=== PATIENT | female | born 1960 | race Caucasian/White ===

== ENCOUNTER 2018-08-15 09:38 | Emergency (ER) | payer MEDICARE ==
--- NOTE | 2018-08-15 10:26 | UC ---
Back Pain HPI - HPI Summary HPI Summary: 58 yo female presents with low back pain. She tells me that 6 days ago she woke up with this pain and it has persisted since. She notes that it seems to improve after certain stretching exercises, but will return soon after. She has not taken anything OTC for this discomfort as she does not like taking medications. She denies numbness, tingling, radiation of pain, saddle anesthesia , loss of bowel/bladder control. - History of Current Complaint Chief Complaint: UCBackPain Stated Complaint: BACK PAIN Time Seen by Provider: 08/15/18 10:25 Hx Obtained From: Patient Onset/Duration: Sudden Onset Timing: Constant Severity Initially: Moderate Severity Currently: Moderate Pain Intensity: 7 Pain Scale Used: 0-10 Numeric - Allergies/Home Medications Allergies/Adverse Reactions: Allergies Allergy/AdvReac Type Severity Reaction Status Date / Time Sulfa (Sulfonamide Allergy Unknown Verified 08/15/18 10:24 Antibiotics) Reaction Details PMH/Surg Hx/FS Hx/Imm Hx - Additional Past Medical History Additional PMH: None - Surgical History Surgical History: None - Family History Known Family History: Positive: None - Social History Lives: With Family Alcohol Use: None Substance Use Type: None Smoking Status (MU): Never Smoked Tobacco Review of Systems Constitutional: Negative Skin: Negative Respiratory: Negative Cardiovascular: Negative Gastrointestinal: Negative Genitourinary: Negative Neurovascular: Negative Musculoskeletal: Other: - LBP Neurological: Negative Psychological: Negative All Other Systems Reviewed And Are Negative: Yes Physical Exam - Summary Physical Exam Summary: GENERAL: NAD. WDWN. No pain distress. SKIN: No rashes, sores, lesions, or open wounds. NECK: Supple. FROM. Nontender. No lymphadenopathy. CHEST: CTAB. No r/r/w. No accessory muscle use. Breathing comfortably and in no distress. CV: RRR. Without m/r/g. Pulses intact. Cap refill <2seconds MSK: TTP over lumbar paraspinal muscles. Pain with flexion of spine. Positive SLR b/l for low back pain without radiation. Strength 5/5 B/L LEs including dorsiflexion and plantar flexion, pain in lower back with dorsiflexion. FROM B/ L LEs. No edema. NEURO: Alert. CN II-XII grossly intact. Sensations intact B/L LEs L3-S1. PSYCH: Age appropriate behavior. Triage Information Reviewed: Yes Vital Signs: Initial Vital Signs Temp 97.6 F 08/15/18 10:17 Pulse 70 08/15/18 10:17 Resp 18 08/15/18 10:17 Pulse Ox 100 08/15/18 10:17 Vital Signs Reviewed: Yes Back Pain Course/Dx - Course Course Of Treatment: Pt refused BP. XR: IMPRESSION: #. Negative for fracture or malalignment. #. Degenerative spondylosis and facet joint osteoarthritis. Suspect muscle strain. Rx for lidocaine patch as she prefers not to take po medications. F/u with physical therapy for further treatment. - Differential Dx/Diagnosis Provider Diagnoses: Low back pain Discharge - Sign-Out/Discharge Documenting (check all that apply): Patient Departure All imaging exams completed and their final reports reviewed: Yes - Discharge Plan Condition: Stable Disposition: HOME Prescriptions: Lidocaine PATCH 5%* [Lidoderm 5% Patch*] 1 patch TRANSDERM DAILY PRN #1 box PRN Reason: Pain Patient Education Materials: Muscle Strain (ED) Referrals: No Primary Care Phys,NOPCP [Primary Care Provider] - Additional Instructions: If you develop a fever, shortness of breath, chest pain, new or worsening symptoms - please call your PCP or go to the ED. 1) Please follow up with Dr. Kan or Dr. Forman at the number below for a primary care doctor - Billing Disposition and Condition Condition: STABLE Disposition: Home - Attestation Statements Provider Attestation: Per institutional requirements, I have reviewed the chart, however, I was not consulted specifically or made aware of this patient by the midlevel provider. I did not personally evaluate, interact with , or disposition this patient.
--- NOTE | 2018-08-15 11:38 | RAD ---
Indication: Back pain with flexion following injury 6 days ago. Decreased range of motion. Comparison: No relevant prior exams available on the [facility] for comparison. Technique: AP, lateral, and oblique views lumbar sacral spine. Report: Partial lumbarization of the S1 vertebral body greater on the RIGHT. Exact vertebral counting requires imaging of the entire neural axis. Negative for fracture or spondylolysis at any level. Negative for spondylolisthesis. Multilevel mild vertebral endplate osteophytosis. Mild L5-S1 disc space narrowing. Multilevel mild to moderate facet joint osteoarthritis increasing in severity extending caudal. Unremarkable paraspinal soft tissue contours. IMPRESSION: #. Negative for fracture or malalignment. #. Degenerative spondylosis and facet joint osteoarthritis.
== END 2018-08-15 12:00 | disposition home or self-care (01) ==
LOC: UCEAST 09:38
DX: M54.5 Low back pain (principal); M47.817 Spondylosis without myelopathy or radiculopathy, lumbosacral region; Z88.2 Allergy status to sulfonamides
CPT/HCPCS: 72110; 99202; G0463

== ENCOUNTER 2019-05-20 18:37 | Emergency (ER) | payer MEDICARE, MEDICAID ==
--- NOTE | 2019-05-20 19:53 | ED ---
Skin Complaint - HPI Summary HPI Summary: This patient is a 59 year old female presenting to [facility] with a chief complaint of rash. The patient states she moved into a new apartment 5 days ago and states the floors in the kitchen and the bathroom felt like a mouse in a glue trap. From when she moved in she experienced rhinorrhea, swelling and pruritis behind the left ear. She complains of pruritic rash on her fingers, in her vaginal area, and her buttocks. She states it has gotten progressively worse since . She states it could be exposure to poison elsie or poison oak as she urinated outside on the grass last week. The patient has been using spray on lotions and showering on the applied areas. She states the affected areas become painful if she scratches them. The patient reports a sore throat that has resolved. She denies using any new soaps, laundry detergents, and foods. Denies fever, cough, sore throat, CP, SOB, N/V/D, abdominal pain, change in urine, change in BM. Medical history is none. Patient has not seen a primary care provider in years. - History of Current Complaint Chief Complaint: EDRashSkinAbscess Time Seen by Provider: 05/20/19 19:40 Stated Complaint: LT EAR SWOLLEN PER PT Hx Obtained From: Patient Onset/Duration: Started Days Ago, Atraumatic Timing: Constant Onset Severity: Moderate Current Severity: Moderate Pain Intensity: 5 Pain Scale Used: 0-10 Numeric Skin Location: Diffuse, Ear, Other: Aggravating Symptom(s): Nothing Alleviating Symptom(s): Nothing Associated Signs & Symptoms: Rash - Allergy/Home Medications Allergies/Adverse Reactions: Allergies Allergy/AdvReac Type Severity Reaction Status Date / Time Sulfa (Sulfonamide Allergy Unknown Verified 05/20/19 18:45 Antibiotics) Reaction Details Home Medications: Home Medications NK [No Home Medications Reported] 05/20/19 [History Confirmed 05/20/19] PMH/Surg Hx/FS Hx/Imm Hx Endocrine/Hematology History: Denies: Hx Anticoagulant Therapy Cardiovascular History: Denies: Hx Pacemaker/ICD History: Denies: Hx Dialysis Sensory History: Denies: Hx Eye Prosthesis Opthamlomology History: Denies: Hx Legally Blind EENT History: Denies: Hx Deafness Neurological History: Denies: Hx Developmental Delay Psychiatric History: Denies: Hx Autism Infectious Disease History: No Infectious Disease History: Denies: Traveled Outside the [place] in Last 30 Days - Family History Known Family History: Positive: None - Social History Alcohol Use: None Substance Use Type: Reports: None Smoking Status (MU): Never Smoked Tobacco Review of Systems Constitutional: Negative Eyes: Negative Positive: Ear Ache - Swelling, inflammation, discharge of left earlobe. No pain with palpation of either. Normal exam of ear canal and TM. Cardiovascular: Negative Respiratory: Negative Gastrointestinal: Negative Genitourinary: Negative Musculoskeletal: Negative Positive: Rash Neurological: Negative Psychological: Normal All Other Systems Reviewed And Are Negative: Yes Physical Exam - Summary Physical Exam Summary: Thickened erythemic rash in the vaginal area, bilateral medial thighs, and perianal area. Satellite lesion on the left buttock with some crusting and a swollen edemitis left ear lobe. Triage Information Reviewed: Yes Vital Signs On Initial Exam: Initial Vitals Temp Pulse Resp BP Pulse Ox 97.9 F 63 16 130/77 100 05/20/19 18:43 05/20/19 18:43 05/20/19 18:43 05/20/19 18:43 05/20/19 18:43 Vital Signs Reviewed: Yes Appearance: Positive: Well-Appearing, No Pain Distress Skin: Positive: Warm, Dry Head/Face: Positive: Normal Head/Face Inspection Eyes: Positive: Normal, EOMI, MAXIME ENT: Positive: Normal ENT inspection, Pharynx normal, TMs normal Neck: Positive: Supple, Nontender Respiratory/Lung Sounds: Positive: Clear to Auscultation, Breath Sounds Present Cardiovascular: Positive: Normal, RRR Abdomen Description: Positive: Nontender, Soft Bowel Sounds: Positive: Present Musculoskeletal: Positive: Normal, Strength/ROM Intact Neurological: Positive: Normal, Alert, Oriented to Person Place, Time Psychiatric: Positive: Affect/Mood Appropriate AVPU Assessment: Alert - [place] Coma Scale Best Eye Response: 4 - Spontaneous Best Motor Response: 6 - Obeys Commands Best Verbal Response: 5 - Oriented Coma Scale Total: 15 Diagnostics - Vital Signs Vital Signs Temp Pulse Resp BP Pulse Ox 05/20/19 18:43 97.9 F 63 16 130/77 100 - Laboratory Lab Statement: Any lab studies that have been ordered have been reviewed, and results considered in the medical decision making process. Course/Dx - Course Course Of Treatment: This patient is a 59 year old female presenting to [facility] with a chief complaint of rash. The patient states she moved into a new apartment 5 days ago and states the floors in the kitchen and the bathroom felt like a mouse in a glue trap. From when she moved in she experienced rhinorrhea, swelling and pruritis behind the left ear. She complains of pruritic rash on her fingers, in her vaginal area, and her buttocks. She states it has gotten progressively worse since . She states it could be exposure to poison elsie or poison oak as she urinated outside on the grass last week. The patient has been using spray on lotions and showering on the applied areas. She states the affected areas become painful if she scratches them. The patient reports a sore throat that has resolved. She denies using any new soaps, laundry detergents, and foods. Denies fever, cough, sore throat, CP, SOB, N/V/D, abdominal pain, change in urine, change in BM. Medical history is none. Patient has not seen a primary care provider in years. Physical exam:Thickened erythemic rash in the vaginal area, bilateral medial thighs, and perianal area. Satellite lesion on the left buttock with some crusting and a swollen edemitis left ear lobe. Vital signs within normal limits. Rx for nystatin cream 3 times a day 10 days. - Diagnoses Provider Diagnoses: Candidal dermatitis Discharge - Sign-Out/Discharge Documenting (check all that apply): Patient Departure Patient Received Moderate/Deep Sedation with Procedure: No - Discharge Plan Condition: Stable Disposition: HOME Patient Education Materials: Skin Yeast Infection (ED) Referrals: No Primary Care Phys,NOPCP [Primary Care Provider] - Care [facility] [Outside] Additional Instructions: Use cream on rash 3 times a day for 10 days. Do not use on left ear. Follow up with primary care. Return to the ED for any new or worsening symptoms. - Billing Disposition and Condition Condition: STABLE Disposition: Home - Attestation Statements Document Initiated by Scribe: Yes Documenting Scribe: Danny Mares Provider For Whom Julius is Documenting (Include Credential): GLENDY Rangel Scribe Attestation: Danny Escamilla, scribed for GLENDY Rangel on 05/21/19 at 2054. Scribe Documentation Reviewed: Yes Provider Attestation: The documentation as recorded by the scribe, Danny Mares accurately reflects the service I personally performed and the decisions made by me, GLENDY Rangel Status of Scribe Document: Viewed
[2019-05-20] MEDS ORDERED: Nystatin CREAM* 15 GM TUBE TOPICAL ONE (21:49)
[2019-05-20 22:28] VITALS: BP 0/0
== END 2019-05-20 22:26 | disposition home or self-care (01) ==
LOC: ED 18:37
DX: B37.2 Candidiasis of skin and nail (principal)
CPT/HCPCS: 99282; A9270-GY

== ENCOUNTER 2019-08-24 09:36 | Emergency (ER) | payer MEDICARE, MEDICAID ==
[2019-08-24 09:49] VITALS: BP 122/60
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
== END 2019-08-24 11:20 | disposition home or self-care (01) ==
LOC: UCEAST 09:36
DX: G89.29 Other chronic pain (principal); S39.012A Strain of muscle, fascia and tendon of lower back, initial encounter; V70.6XXA Passenger on bus injured in collision with pedestrian or animal in traffic accident, initial encounter; Y92.410 Unspecified street and highway as the place of occurrence of the external cause; F41.9 Anxiety disorder, unspecified; Z88.2 Allergy status to sulfonamides
CPT/HCPCS: 72050; 72070; 72110; 99212; G0463

== ENCOUNTER 2019-11-15 14:49 | Emergency (ER) | payer MEDICARE, MEDICAID ==
[2019-11-15 15:04] VITALS: BP 0/0
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
== END 2019-11-15 16:25 | disposition home or self-care (01) ==
LOC: UCEAST 14:49
DX: S16.1XXA Strain of muscle, fascia and tendon at neck level, initial encounter (principal); S33.5XXA Sprain of ligaments of lumbar spine, initial encounter; V78.6XXA Passenger on bus injured in noncollision transport accident in traffic accident, initial encounter; Y92.89 Other specified places as the place of occurrence of the external cause; Z88.2 Allergy status to sulfonamides
CPT/HCPCS: 99211; G0463

== ENCOUNTER 2020-03-05 15:43 | Emergency (ER) | payer MEDICARE, MEDICAID ==
[2020-03-05 16:22] VITALS: BP 130/85
== END 2020-03-05 17:37 | disposition left against medical advice (07) ==
LOC: ED 15:43
DX: R05 Cough (principal); Z53.21 Procedure and treatment not carried out due to patient leaving prior to being seen by health care provider
CPT/HCPCS: 99281